=== PATIENT | female | born 1975 | race Caucasian/White ===

== ENCOUNTER 2020-07-04 11:29 | Emergency (ER) | payer BC | END 2020-07-04 12:55 | disposition home or self-care (01) | LOC: JVIRT 11:29 | DX: Z11.52 Encounter for screening for COVID-19 (principal) | CPT/HCPCS: G2251-GT; Q3014-GT ==

== ENCOUNTER 2023-07-13 18:36 | Emergency (ER) | payer BC ==
[2023-07-13 18:44] VITALS: PULSE 115; RESP 16; TEMP 98.4; BMI 25.7
[2023-07-13] MEDS: SODIUM CHLORIDE 1,000 ML IV ONE (19:00)
[2023-07-13] MEDS ORDERED: ONDANSETRON 4 MG/2 ML VIAL ONE (19:23)
[2023-07-13] MEDS: ONDANSETRON 4 MG/2 ML VIAL IVPB ONE (19:25)
[2023-07-13 19:27] LABS: HEMATOCRIT 47.1 % (32.4-45.2); HEMOGLOBIN 16.2 G/dL (10.7-15.3); MCH 31.3 pg (25.7-33.7); MCHC 34.4 g/dl (32.0-36.0); MEAN CELL VOLUME 90.9 fl (80-96); MEAN PLT VOLUME 8.1 fl (7.5-11.1); PLATELET COUNT 183.5 10^3/uL (134-434); RBC 5.18 10^6/uL (3.60-5.2); RDW 13.7 % (11.6-15.6); WHITE BLOOD COUNT 14.8 10^3/uL (4.0-10.8)
[2023-07-13 19:47] LABS: ALBUMIN 4.3 g/dl (3.4-5.0); BILIRUBIN,TOTAL 0.4 mg/dl (0.2-1); CALCIUM 9.3 mg/dl (8.5-10.1); CREATININE 0.7 mg/dl (0.6-1.3); POTASSIUM 3.7 mmol/L (3.5-5.1); TOT PROT 7.9 g/dl (6.4-8.2)
[2023-07-13] MEDS ORDERED: METOCLOPRAMIDE HCL INJECTION 10 MG/2 ML VIAL ONE (19:54)
[2023-07-13] MEDS ORDERED: ACETAMINOPHEN INJECTION 100 ML IVPB ONE (19:54)
[2023-07-13] MEDS: ACETAMINOPHEN 1000 MG/100 ML BAG IVPB ONE (19:55)
[2023-07-13] MEDS: METOCLOPRAMIDE HCL INJECTION 10 MG/2 ML VIAL IVPUSH ONE (20:10)
[2023-07-13 20:56] VITALS: BP 145/93
== END 2023-07-13 21:05 | disposition home or self-care (01) ==
LOC: FER 18:36
PROC: 3E033NZ Introduction of Analgesics, Hypnotics, Sedatives into Peripheral Vein, Percutaneous Approach (ICD-10-PCS; principal; 2023-07-13)
PROC: 3E033GC Introduction of Other Therapeutic Substance into Peripheral Vein, Percutaneous Approach (ICD-10-PCS; 2023-07-13)
PROC: 3E033GC Introduction of Other Therapeutic Substance into Peripheral Vein, Percutaneous Approach (ICD-10-PCS; 2023-07-13)
PROC: 3E0337Z Introduction of Electrolytic and Water Balance Substance into Peripheral Vein, Percutaneous Approach (ICD-10-PCS; 2023-07-13)
DX: G43.909 Migraine, unspecified, not intractable, without status migrainosus (principal); R11.2 Nausea with vomiting, unspecified
CPT/HCPCS: 36415; 80053; 81003; 81015; 85027; 99284-25; J0131